=== PATIENT | female | born 2000 | race Caucasian/White ===

== ENCOUNTER 2024-01-08 16:10 | Emergency (ER) | payer OTHER, SELFPAY ==
[2024-01-08 16:16] VITALS: BP 144/63; PULSE 100; RESP 18; TEMP 36.6; O2SAT 99; BMI 23.3
--- NOTE | 2024-01-08 16:22 | DI.RAD.S_ITS ---
PROCEDURE: XR ANKLE RT MIN 3V INDICATIONS: fall/pain TECHNIQUE: 3 views of the ankle were acquired. COMPARISON: None. FINDINGS: Bones: No fractures or dislocations. Ankle mortise is normally aligned. No suspicious bony lesions. Soft tissues: No tibiotalar joint effusion. Achilles tendon appears normal. IMPRESSION: No visualized acute fracture or dislocation. However, if clinical concern and/or pain persist, short interval imaging followup in 7-10 days is recommended, as occult injury cannot be definitively excluded. Dictated by: Sharlene Arellano M.D. on 01/08/2024 at 17:35 Approved by: Sharlene Arellano M.D. on 01/08/2024 at 17:36
--- NOTE | 2024-01-08 16:22 | DI.RAD.S_ITS ---
PROCEDURE: XR FOOT RT MIN 3V INDICATIONS: fall/pain TECHNIQUE: 3 views of the foot were acquired. COMPARISON: None. FINDINGS: Bones: Sesamoid bone lucency overlying the distal 1st metatarsal.. No suspicious bony lesions. Soft tissues: No tibiotalar joint effusion. Achilles tendon appears normal. IMPRESSION: Sesamoid bone lucency as above. This could represent bipartite which is congenital variation. However, given no priors, fracture cannot be excluded. Recommend correlation point tenderness. Dictated by: Sharlene Arellano M.D. on 01/08/2024 at 17:36 Approved by: Sharlene Arellano M.D. on 01/08/2024 at 17:37
--- NOTE | 2024-01-08 16:49 | ED_ITS ---
HPI - Extremity Injury (Lower) <Roxie Miller PA-C - Last Filed: 01/08/24 19:23> General Chief Complaint: Extremity Injury, Lower Stated Complaint: rt ankle injury Time Seen by Provider: 01/08/24 16:49 Source: patient Mode of arrival: Ambulatory History of Present Illness HPI Narrative: Oscar Christine is a pleasant 23-year-old female with no reported past medical history who presents to the emergency department for right foot and ankle pain after rolling it last night. Patient reports she was walking down the stairs when she stepped awkwardly on the ground causing her to roll her right ankle. Reports immediate pain of the lateral right ankle and 5th toe. Pain has improved since the fall. She has been using an [id number] ankle brace and crutches as bearing weight exacerbates the pain. She denies any other injuries, numbness, tingling or decreased sensation of the foot. She does have bruising overlying the lateral aspect of the 5th toe and swelling of the lateral malleolus. Related Data Home Medications Medication Instructions Recorded Confirmed albuterol sulfate 90 mcg/actuation 1 inh inhalation Q4-6H PRN 07/09/22 01/10/23 breath activated powder inhaler Allergies Allergy/AdvReac Type Severity Reaction Status Date / Time No Known Drug Allergies Allergy Unverified 01/10/23 16:01 Review of Systems <Roxie Miller PA-C - Last Filed: 01/08/24 19:23> Review of Systems ROS Unobtainable: All systems reviewed & are unremarkable except as noted in HPI and below Patient History <Roxie Miller PA-C - Last Filed: 01/08/24 19:23> Social History Smoking Status: Never smoker Smoking Status: Never smoker alcohol intake frequency: 0-2 drinks per day Substance Use Type: does not use Exam <Roxie Miller PA-C - Last Filed: 01/08/24 19:23> Narrative Exam Narrative: GENERAL: 23 year old patient appears stated age. Well-developed patient, in no acute distress. HEAD: Atraumatic. Normocephalic. EYES: Extraocular motions intact. No scleral icterus. No injection or drainage. ENT: Nose without bleeding, purulent drainage. NECK: Trachea midline. Cervical ROM intact. CARDIOVASCULAR: Regular rate and rhythm. RESPIRATORY: ?Nonlabored respirations. ?Speaking in clear, full sentences. EXTREMITIES: Mild swelling of right lateral malleolus with tenderness to palpation just distal to the lat mal. Tenderness to palpation of the 5th MTP joint with bruising. No tenderness to palpation of the medial malleolus, remainder of the right foot. Strong PT and DP pulses. BACK: Nontender without deformity or crepitance. NEURO: AOx3. ?Clear speech. ?Moves all 4 extremities appropriately. SKIN: Ecchymosis overlying base of right 5th toe. Initial Vital Signs Initial Vital Signs: Vital Signs Temperature 98 F 01/08/24 16:16 Pulse Rate 100 H 01/08/24 16:16 Respiratory Rate 18 01/08/24 16:16 Blood Pressure 144/63 H 01/08/24 16:16 Pulse Oximetry 99 01/08/24 16:16 Oxygen Delivery Method Room Air 01/08/24 16:16 <Anabelle Pryor MD - Last Filed: 01/09/24 00:55> Initial Vital Signs Initial Vital Signs: Vital Signs Temperature 98 F 01/08/24 16:16 Pulse Rate 100 H 01/08/24 16:16 Respiratory Rate 18 01/08/24 16:16 Blood Pressure 144/63 H 01/08/24 16:16 Pulse Oximetry 99 01/08/24 16:16 Oxygen Delivery Method Room Air 01/08/24 16:16 Course <Roxie Miller PA-C - Last Filed: 01/08/24 19:23> Orders Ordered: ED Orders 01/08/24 16:22 XR ankle RT min 3V Stat XR foot RT min 3V Stat Vital Signs Vital signs: Vital Signs - 8 hr 01/08/24 19:08 Pulse Rate 81 Respiratory Rate 14 Blood Pressure 121/71 Pulse Oximetry 100 Oxygen Delivery Method Room Air <Anabelle Pryor MD - Last Filed: 01/09/24 00:55> Orders Ordered: ED Orders 01/08/24 16:22 XR ankle RT min 3V Stat XR foot RT min 3V Stat Vital Signs Vital signs: Vital Signs - 8 hr 01/08/24 19:08 Pulse Rate 81 Respiratory Rate 14 Blood Pressure 121/71 Pulse Oximetry 100 Oxygen Delivery Method Room Air MDM - Extremity Injury (Lower) <Roxie Miller PA-C - Last Filed: 01/08/24 19:23> Imaging Data Right foot Xray, Right ankle Xray: Radiologist's Impression: PROCEDURE: XR FOOT RT MIN 3V INDICATIONS: fall/pain TECHNIQUE: 3 views of the foot were acquired. COMPARISON: None. FINDINGS: Bones: Sesamoid bone lucency overlying the distal 1st metatarsal.. No suspicious bony lesions. Soft tissues: No tibiotalar joint effusion. Achilles tendon appears normal. IMPRESSION: Sesamoid bone lucency as above. This could represent bipartite which is congenital variation. However, given no priors, fracture cannot be excluded. Recommend correlation point tenderness. PROCEDURE: XR ANKLE RT MIN 3V INDICATIONS: fall/pain TECHNIQUE: 3 views of the ankle were acquired. COMPARISON: None. FINDINGS: Bones: No fractures or dislocations. Ankle mortise is normally aligned. No suspicious bony lesions. Soft tissues: No tibiotalar joint effusion. Achilles tendon appears normal. IMPRESSION: No visualized acute fracture or dislocation. However, if clinical concern and/or pain persist, short interval imaging followup in 7-10 days is recommended, as occult injury cannot be definitively excluded. [facility] Narrative Medical decision making narrative: 23-year-old female presents to the emergency department for right ankle and foot pain after rolling it yesterday. Differential diagnosis includes but is not limited to ankle fracture, ankle sprain, ankle strain, 5th toe fracture, 5th metatarsal fracture, etc.. On exam patient is in no acute distress, nontoxic appearing, tenderness to palpation of the right lateral malleolus and right 5th toe. We will obtain x-ray of the ankle and foot. Patient declining ice pack or pain medication at this time. Ankle x-ray reveals no acute fracture or dislocation. If pain persists, recommend short interval imaging follow up in 7-10 days. Foot x-ray reveals sesamoid bone lucency which could represent a bipartite which is a congenital variation however given no priors fracture can not be excluded, recommend correlation with point tenderness. Patient has no tenderness whatsoever on the medial aspect of her foot, no point tenderness over the sesamoid bone or 1st metatarsal. Results were discussed with the patient and her imaging results were printed for her. After shared decision-making, she would like to use her own ankle brace and crutches. Recommended rice therapy and follow up with PCP. She understands that if she has persistent pain she will need to see an orthopedic doctor or have repeat x-rays in 7-10 days. All questions answered. Provided with a note for PE class. Patient is stable for discharge. Discharge Plan Departure Patient Disposition: Home Clinical Impression: Ankle sprain and strain, Acute right ankle pain Instructions: DI for Ankle Sprain Activity Restrictions/Additional Instructions: Please rest, ice ankle for 15 minutes at least 4 times a day, wear a compressive brace around the right ankle, and elevate the ankle above the heart decrease swelling. You may take 1000 mg of Tylenol every 8 hours for pain and 400-600 mg of ibuprofen every 6 hours for pain. Return to the emergency room if you develop any new or worsening symptoms. If you continue to have persistent right ankle pain, you may need repeat x-rays in 7-10 days. You may bear weight on the ankle as tolerated, use crutches for comfort. Please follow up with your primary care doctor within the next 2-3 days. Return to the emergency department for any new or worsening symptoms, or any other concerns. Thank you for letting me participate in your care, Roxie Miller PA-C Prescriptions: No Action albuterol sulfate 90 mcg/actuation aerosol powdr breath activated 1 inh inhalation Q4-6H PRN Referrals: Miscellaneous,Doctor, [Primary Care Provider] - Stand Alone Forms: Patient Portal/API/Survey, School Release Note ED Sign-out <Anabelle Pryor MD - Last Filed: 01/09/24 00:55> Cosign ED Attending Bereketature Attestation: I did not see this patient. I was available all times for consultation.
[2024-01-08 19:08] VITALS: BP 121/71; PULSE 81; RESP 14; O2SAT 100
== END 2024-01-08 19:10 | disposition home or self-care (01) ==
PROVIDERS: Emergency Provider Physician Assistant
DX: S93.401A Sprain of unspecified ligament of right ankle, initial encounter (principal); S96.911A Strain of unspecified muscle and tendon at ankle and foot level, right foot, initial encounter; M25.571 Pain in right ankle and joints of right foot; X50.1XXA Overexertion from prolonged static or awkward postures, initial encounter
CPT/HCPCS: 73610; 73630; 99283